=== PATIENT | female | born 1940 | race Caucasian/White ===

== ENCOUNTER 2016-09-20 19:42 | Inpatient (IN) | payer OTHER ==
--- NOTE | 2016-09-20 20:01 | CPEKG ---
Heart Rate: 86 RR Interval: 698 P-R Interval: 146 QRSD Interval: 146 QT Interval: 428 QTC Interval: 512 P [place]: 55 QRS [place]: 173 T Wave [place]: -13 EKG Severity - ABNORMAL ECG - EKG Impression: ATRIAL-SENSED VENTRICULAR-PACED COMPLEXES EKG Impression: NONSPECIFIC INTRAVENTRICULAR CONDUCTION DELAY EKG Impression: MINIMAL ST DEPRESSION, INFERIOR LEADS Electronically Signed By: Malena Troy 20-Sep-2016 22:09:42
[2016-09-20] MEDS ORDERED: ASPIRIN 81 MG CHEWABLE TAB PO ONE (20:05)
[2016-09-20] MEDS ORDERED: NITROGLYCERIN 0.4 MG BTL SL PRN (20:05)
--- NOTE | 2016-09-20 20:06 | EDPHY ---
HPI/HX/ROS/PE/MDM Narrative: CHIEF COMPLAINT: Chest pain, shortness of breath. HISTORY OF PRESENT ILLNESS: This patient is an anticoagulated 76 year old female with significant cardiac history arriving with her family complaining of chest pain and shortness of breath onset two days ago. She arrived in [place] yesterday from [place], and began to experience these symptoms before she left. Her discomfort is localized more to the left side of her chest and today radiates to her left arm. She endorses associated nausea and dizziness. She states she feels she "just can't breathe", and endorses worsening discomfort with deep inspiration. She denies fainting. She was hypoxic on room air at arrival at 84%. Today, she rates her discomfort as 5 or 6/10. She denies fever or recent illness. No chills, vomiting , diarrhea, urinary complaints, headache. REVIEW OF SYSTEMS: Aside from elements discussed in the HPI, a comprehensive 10-point review of systems was reviewed and is negative. PAST MEDICAL HISTORY: CHF, [place], 2 stents, pacemaker, defibrillator. Plavix SOCIAL HISTORY: Family at bedside. Lives in [place]. VITAL SIGNS: Reviewed by me GENERAL: Quiet, uncomfortable appearing. Well-developed, well-nourished, in moderate respiratory distress. HEENT: Atraumatic. Eyes: No icterus, no injection. Mouth: dry lips, slightly dry mucous membranes. No erythema or lesions. Neck: supple with no adenopathy. LUNGS: Diminished breath sounds, faint crackles at bases. CARDIAC: Regular rate and rhythm, no rubs, murmurs or gallops. ABDOMEN: Soft, nontender, nondistended, bowel sounds normal. BACK: No CVA tenderness. EXTREMITIES: No trauma. No edema. Range of motion is normal throughout. NEURO: Alert and oriented, grossly nonfocal. SKIN: Diaphoretic. Warm, mild diaphoresis on back, no rash. PSYCHIATRIC: Normal mentation, no agitation. Portions of this note were transcribed by a medical billing instructor. I personally performed a history, physical exam, medical decision making, and confirmed accuracy of information the transcribed note. ED Course: 76 year old female with significant cardiac history presents with 2 day history of chest pain, shortness of breath, and nausea. Diaphoretic, diminished breath sounds, uncomfortable feeling on exam. Plan for nitroglycerin administration, chest x-ray, labs including CBC, BMP, BNP , D-dimer, Troponin. 12-LEAD EKG: Please see the full report in [facility]. My interpretation: AV paced complexes. Rate 86. ST depression in inferior leads. Chest x-ray shows mild pulmonary edema. BNP elevated, D-dimer elevated. Patient is staying with her family at 7,700ft elevation. Plan for CTA. Plan for admission. 21:[address] Walsh, hospitalist. She accepts admission for chest pain , shortness of breath, hypoxemia, CHF exacerbation. CT scan negative for pulmonary emboli. MDM: After history and physical examination, the differential for this patients chest pain and shortness of breath was considered, including but not limited to , myocardial ischemia, acute coronary syndrome, pulmonary embolus, COPD exacerbation, pulmonary edema, congestive heart failure, chest wall pain, pleural inflammation and pulmonary infectious causes. - Data Points Imaging Results: Imaging Impressions Chest X-Ray 09/20/16 20:05 Impression: Cardiomegaly, with mild pulmonary edema. Left subclavian pacemaker leads. Laboratory Results: Laboratory Results 09/20/16 20:00 09/20/16 20:00 09/20/16 09/20/16 09/20/16 20:00 20:00 20:00 WBC 8.49 10^3/uL 10^3/uL (3.80-9.50) RBC 4.14 10^6/uL L 10^6/uL (4.18-5.33) Hgb 14.6 g/dL g/dL (12.6-16.3) Hct 42.9 % % (38.0-47.0) MCV 103.6 fL H fL (81.5-99.8) MCH 35.3 pg H pg (27.9-34.1) MCHC 34.0 g/dL g/dL (32.4-36.7) RDW 12.6 % % (11.5-15.2) Plt Count 187 10^3/uL 10^3/uL (150-400) MPV 10.5 fL fL (8.7-11.7) Neut % (Auto) 54.6 % % (39.3-74.2) Lymph % (Auto) 33.0 % % (15.0-45.0) Wise % (Auto) 7.5 % % (4.5-13.0) Eos % (Auto) 3.9 % % (0.6-7.6) Baso % (Auto) 0.8 % % (0.3-1.7) Nucleat RBC Rel Count 0.0 % % (0.0-0.2) Absolute Neuts (auto) 4.63 10^3/uL 10^3/uL (1.70-6.50) Absolute Lymphs (auto) 2.80 10^3/uL 10^3/uL (1.00-3.00) Absolute Monos (auto) 0.64 10^3/uL 10^3/uL (0.30-0.80) Absolute Eos (auto) 0.33 10^3/uL 10^3/uL (0.03-0.40) Absolute Basos (auto) 0.07 10^3/uL 10^3/uL (0.02-0.10) Absolute Nucleated RBC 0.00 10^3/uL 10^3/uL (0-0.01) Immature Gran % 0.2 % % (0.0-1.1) Immature Gran # 0.02 10^3/uL 10^3/uL (0.00-0.10) PT 12.3 SEC SEC (12.0-15.0) INR 0.92 (0.83-1.16) APTT 26.1 SEC SEC (23.0-38.0) D-Dimer 0.99 ug/mLFEU H ug/mLFEU (0.00-0.50) Sodium 141 mEq/L mEq/L (134-144) Potassium 4.7 mEq/L mEq/L (3.5-5.2) Chloride 106 mEq/L mEq/L (97-110) Carbon Dioxide 23 mEq/l mEq/l (22-31) Anion Gap 12 mEq/L mEq/L (8-16) BUN 17 mg/dL mg/dL (7-23) Creatinine 0.8 mg/dL mg/dL (0.6-1.0) Estimated GFR > 60 Glucose 121 mg/dL H mg/dL (70-100) Calcium 9.8 mg/dL mg/dL (8.5-10.4) Troponin I 0.023 ng/mL ng/mL (0-0.034) NT-Pro-B Natriuret Pep 2300 pg/mL H pg/mL (0-450) Medications Given: Discontinued Medications Aspirin (Aspirin) 324 mg PO EDNOW ONE Stop: 09/20/16 20:06 Last Admin: 09/20/16 20:18 Dose: 324 mg Morphine Sulfate (Morphine) 2 mg IVP EDNOW ONE Stop: 09/20/16 20:06 Last Admin: 09/20/16 20:17 Dose: 2 mg Nitroglycerin (Nitrostat) 0.4 mg SL Q5M PRN PRN Reason: Chest Pain Stop: 09/20/16 20:16 Last Admin: 09/20/16 20:15 Dose: 0.4 mg General Time Seen by Provider: 09/20/16 19:54 Initial Vital Signs: Initial Vital Signs Heart Rate 87 09/20/16 19:46 Respiratory Rate 16 09/20/16 19:46 Blood Pressure 180/88 H 09/20/16 19:46 O2 Sat (%) 84 L 09/20/16 19:46 O2 (L/minute) 2 Allergies/Adverse Reactions: Sulfa (Sulfonamide Antibiotics) Allergy (Verified 09/20/16 19:49) Home Medications: Medication Instructions Recorded Carvedilol [Coreg (*)] 3.125 mg PO DAILY 09/20/16 Clopidogrel Bisulfate [Clopidogrel] 75 mg PO DAILY 09/20/16 DULoxetine [Cymbalta 60 MG (*)] 60 mg PO DAILY 09/20/16 Escitalopram Oxalate [Lexapro] 10 mg PO DAILY 09/20/16 Furosemide [Lasix 40 MG (*)] 40 mg PO DAILY 09/20/16 Gabapentin [Neurontin 300 MG (*)] 300 mg PO BID 09/20/16 Lisinopril [Zestril 2.5 mg (*)] 2.5 mg PO DAILY 09/20/16 Omeprazole 40 mg PO HS 09/20/16 Oxycodone HCl/Acetaminophen 1 each PO TID 09/20/16 [Oxycodone-Acetaminophen 10-325] Potassium Cl [Klor-Con] 10 meq PO BID 09/20/16 Simvastatin 40 mg PO HS 09/20/16 Departure - Departure Disposition: [facility] Clinical Impression: Shortness of breath, Hypoxemia Chest pain Qualifiers: Chest pain type: other chest pain Qualified Code(s): R07.89 - Other chest pain CHF exacerbation Qualifiers: Congestive heart failure type: unspecified congestive heart failure type Qualified Code(s): I50.9 - Heart failure, unspecified Condition: Fair Report Scribed for: Malena Troy Report Scribed by: Reina Lewis Date of Report: 09/20/16 Time of Report: 20:06
[2016-09-20 20:17] LABS: % IMMATURE GRANULYOCYTES 0.2 % (0.0-1.1); ABSOLUTE IMMATURE GRANULOCYTES 0.02 10^3/uL (0.00-0.10); ADD DIFF? NO; ADD MORPH? NO; ADD SCAN? NO; ATYPICAL LYMPHOCYTE FLAG 0 (0-99); FRAGMENT RBC FLAG 0 (0-99); HEMATOCRIT 42.9 % (38.0-47.0); HEMOGLOBIN 14.6 g/dL (12.6-16.3); LEFT SHIFT FLG 0 (0-99); LIPEMIA HEMOLYSIS FLAG 90 (0-99); MEAN CELL HEMOGLOBIN 35.3 pg (27.9-34.1); MEAN CELL VOLUME 103.6 fL (81.5-99.8); MEAN PLATELET VOLUME 10.5 fL (8.7-11.7); PLATELET CLUMPS FLAG 0 (0-99); PLATELET COUNT 187 10^3/uL (150-400); RED BLOOD CELL COUNT 4.14 10^6/uL (4.18-5.33); RED CELL DISTRIBUTION WIDTH 12.6 % (11.5-15.2)
[2016-09-20 20:38] LABS: ANION GAP 12 mEq/L (8-16); CALCIUM 9.8 mg/dL (8.5-10.4); CARBON DIOXIDE 23 mEq/l (22-31); CHLORIDE 106 mEq/L (97-110); CREATININE 0.8 mg/dL (0.6-1.0); GLOMERULAR FILTRATION RATE > 60; GLUCOSE 121 mg/dL (70-100); POTASSIUM 4.7 mEq/L (3.5-5.2); SODIUM 141 mEq/L (134-144)
[2016-09-20 20:50] LABS: TROPONIN I 0.023 ng/mL (0-0.034)
[2016-09-20 20:54] LABS: APTT 26.1 SEC (23.0-38.0); INR 0.92 (0.83-1.16); PROTIME(PATIENT) 12.3 SEC (12.0-15.0)
[2016-09-20] MEDS ORDERED: NITROGLYCERIN 0.4 MG BTL SL ONE (21:13)
[2016-09-20] MEDS ORDERED: IOPAMIDOL (ISOVUE 370) 100 ML BTL IV ONE (21:17)
[2016-09-20] MEDS ORDERED: ONDANSETRON 4 MG/2 ML VIAL IVP PRN (22:14)
[2016-09-20] MEDS ORDERED: ONDANSETRON DISINTEGRATING 4 MG TAB PO PRN (22:14)
[2016-09-20] MEDS ORDERED: ACETAMINOPHEN 325 MG TAB PO PRN (22:14)
[2016-09-20] MEDS ORDERED: FUROSEMIDE 40 MG in D5W 50 ML IV ONE (22:20)
--- NOTE | 2016-09-20 23:44 | PDGENHP ---
History and Physical - Chief Complaint Chest pain - History of Present Illness Ms. Radha Kelly is a 76 yo F w/ hx of CAD, ?CHF, and GERD presenting with 1 week of progressive chest discomfort and shortness of breath. Patient describes symptoms that began prior to her travel to [place] from [place] a few days ago. Over the last few days, the symptoms continued to worsen. She has been experiencing chest heaviness with some radiation to left arm as well as SOB. She denies diaphoresis or significant relation to exertion/relief with rest. She does note it worsens with deep breathing. The pain is mild/moderate and does not feel like previous heart attacks. She was chest pain free at the time of my evaluation. She denies fever, chills, abdominal pain, dysuria, and diarrhea. History Information - Allergies/Home Medication List Allergies/Adverse Reactions: Sulfa (Sulfonamide Antibiotics) Allergy (Verified 09/20/16 19:49) Home Medications: Carvedilol [Coreg (*)] 3.125 mg PO DAILY 09/20/16 [Last Taken 09/20/16] Clopidogrel Bisulfate [Clopidogrel] 75 mg PO DAILY 09/20/16 [Last Taken 09/20/16 ] DULoxetine [Cymbalta 60 MG (*)] 60 mg PO DAILY 09/20/16 [Last Taken 09/20/16] Escitalopram Oxalate [Lexapro] 10 mg PO DAILY 09/20/16 [Last Taken 09/20/16] Furosemide [Lasix 40 MG (*)] 40 mg PO DAILY 09/20/16 [Last Taken 09/20/16] Gabapentin [Neurontin 300 MG (*)] 300 mg PO BID 09/20/16 [Last Taken Unknown] Lisinopril [Zestril 2.5 mg (*)] 2.5 mg PO DAILY 09/20/16 [Last Taken 09/20/16] Omeprazole 40 mg PO HS 09/20/16 [Last Taken 09/19/16] Oxycodone HCl/Acetaminophen [Oxycodone-Acetaminophen 10-325] 1 each PO TID 09/20 [Last Taken Unknown] Potassium Cl [Klor-Con] 10 meq PO BID 09/20/16 [Last Taken Unknown] Simvastatin 40 mg PO HS 09/20/16 [Last Taken 09/19/16] I have personally reviewed and updated: family history, medical history - Past Medical History coronary artery disease - Surgical History Reports: spinal surgery - Family History Positive for: diabetes type II - Social History Smoking Status: Never smoked Alcohol Use: None Drug Use: None Review of Systems ROS: 10pt was reviewed & negative except for what was stated in HPI & below Physical Exam Temp Pulse Resp BP Pulse Ox 37.3 C 91 18 120/79 96 09/20/16 22:47 09/20/16 22:47 09/20/16 22:47 09/20/16 22:47 09/20/16 22:47 O2 (L/minute) 2 Constitutional: no apparent distress, not in pain Eyes: PERRL, EOMI Ears, Nose, Mouth, Throat: moist mucous membranes, no oral mucosal ulcers Cardiovascular: regular rate and rhythym, no murmur, rub, or gallop, edema (1+ b /l DAVID) Respiratory: no respiratory distress, inspiratory crackles (Mild, bibasilar) Gastrointestinal: normoactive bowel sounds, soft, non-tender abdomen Skin: warm, no rashes or abrasions Musculoskeletal: no muscle tenderness Neurologic: AAOx3, CN II-XII Intact Psychiatric: interacting appropriately, not anxious Lab Data & Imaging Review 09/20/16 20:00 09/20/16 20:00 WBC 8.49 10^3/uL (3.80-9.50) 09/20/16 20:00 RBC 4.14 10^6/uL (4.18-5.33) L 09/20/16 20:00 Hgb 14.6 g/dL (12.6-16.3) 09/20/16 20:00 Hct 42.9 % (38.0-47.0) 09/20/16 20:00 MCV 103.6 fL (81.5-99.8) H 09/20/16 20:00 MCH 35.3 pg (27.9-34.1) H 09/20/16 20:00 MCHC 34.0 g/dL (32.4-36.7) 09/20/16 20:00 RDW 12.6 % (11.5-15.2) 09/20/16 20:00 Plt Count 187 10^3/uL (150-400) 09/20/16 20:00 MPV 10.5 fL (8.7-11.7) 09/20/16 20:00 Neut % (Auto) 54.6 % (39.3-74.2) 09/20/16 20:00 Lymph % (Auto) 33.0 % (15.0-45.0) 09/20/16 20:00 [place] % (Auto) 7.5 % (4.5-13.0) 09/20/16 20:00 Eos % (Auto) 3.9 % (0.6-7.6) 09/20/16 20:00 Baso % (Auto) 0.8 % (0.3-1.7) 09/20/16 20:00 Nucleat RBC Rel Count 0.0 % (0.0-0.2) 09/20/16 20:00 Absolute Neuts (auto) 4.63 10^3/uL (1.70-6.50) 09/20/16 20:00 Absolute Lymphs (auto) 2.80 10^3/uL (1.00-3.00) 09/20/16 20:00 Absolute Monos (auto) 0.64 10^3/uL (0.30-0.80) 09/20/16 20:00 Absolute Eos (auto) 0.33 10^3/uL (0.03-0.40) 09/20/16 20:00 Absolute Basos (auto) 0.07 10^3/uL (0.02-0.10) 09/20/16 20:00 Absolute Nucleated RBC 0.00 10^3/uL (0-0.01) 09/20/16 20:00 Immature Gran % 0.2 % (0.0-1.1) 09/20/16 20:00 Immature Gran # 0.02 10^3/uL (0.00-0.10) 09/20/16 20:00 PT 12.3 SEC (12.0-15.0) 09/20/16 20:00 INR 0.92 (0.83-1.16) 09/20/16 20:00 APTT 26.1 SEC (23.0-38.0) 09/20/16 20:00 D-Dimer 0.99 ug/mLFEU (0.00-0.50) H 09/20/16 20:00 Sodium 141 mEq/L (134-144) 09/20/16 20:00 Potassium 4.7 mEq/L (3.5-5.2) 09/20/16 20:00 Chloride 106 mEq/L (97-110) 09/20/16 20:00 Carbon Dioxide 23 mEq/l (22-31) 09/20/16 20:00 Anion Gap 12 mEq/L (8-16) 09/20/16 20:00 BUN 17 mg/dL (7-23) 09/20/16 20:00 Creatinine 0.8 mg/dL (0.6-1.0) 09/20/16 20:00 Estimated GFR > 60 09/20/16 20:00 Glucose 121 mg/dL (70-100) H 09/20/16 20:00 Calcium 9.8 mg/dL (8.5-10.4) 09/20/16 20:00 Troponin I 0.023 ng/mL (0-0.034) 09/20/16 20:00 NT-Pro-B Natriuret Pep 2300 pg/mL (0-450) H 09/20/16 20:00 Imaging Review: CTPE negative for PE but showing presence of pulmonary edema. Visualized and Interpreted Chest x-ray results: Yes Chest X-Ray results: other (Mild pulmonary edema) EKG Interpretation: Positive for: other (V-paced) Assessment & Plan Assessment: Ms. Radha Kelly is a 76 yo F w/ CAD, ?CHF, and GERD presenting with several days of chest discomfort and shortness of breath consistent with CHF exacerbation. Plan: 1. CHF exacerbation - Mildly hypoxic with pulmonary edema and elevated BNP. Overall appears mild and patient is in no acute distress, warm, and well perfused. Patient is a poor historian and unclear if she has a history of heart failure. With her CAD history, ischemic cardiomyopathy is a distinct possibility. She reports a dry weight of 190 lbs; 203 on admission here. She takes furosemide 40 mg PO daily and does not pay much attention to fluid or sodium restriction. Noting symptoms have been present for at least 5 days, doubt ACS as trigger since troponin negative on arrival. CTPE without PE. - Pre-load: Lasix 40 mg IV x1; assess response and redose accordingly in AM - BB: Continue low dose Coreg - RESHMA: Continue low dose Lisinopril - Device: Dual chamber ICD in place - ARSLAN: Not on ricardo, unclear EF - Will order TTE for further clarification of diagnosis - Primary deburrer strip Dr. Tom Cole, [employer] in [place] 2. Chest pain - Suspect related to above; troponin negative on admission. ECG V- paced so difficult to assess for ischemia. - Will recheck troponin in AM to assure not rising 3. CAD - Patient reports history of 2 prior MIs with last stenting in February of this year. On DAPT, BB, RESHMA, statin, and lasix, which I will continue. 4. GERD - Continue PPI 5. Chronic back pain - With history of spinal surgery. Continue gabapentin and oxycodone PRN.
[2016-09-21] MEDS ORDERED: oxyCODONE IR 5 MG TAB PO PRN
[2016-09-21 03:50] LABS: % IMMATURE GRANULYOCYTES 0.3 % (0.0-1.1); ABSOLUTE IMMATURE GRANULOCYTES 0.02 10^3/uL (0.00-0.10); ADD DIFF? NO; ADD MORPH? NO; ADD SCAN? NO; ATYPICAL LYMPHOCYTE FLAG 10 (0-99); FRAGMENT RBC FLAG 0 (0-99); HEMATOCRIT 38.1 % (38.0-47.0); HEMOGLOBIN 12.7 g/dL (12.6-16.3); LEFT SHIFT FLG 0 (0-99); LIPEMIA HEMOLYSIS FLAG 80 (0-99); MEAN CELL HEMOGLOBIN 34.8 pg (27.9-34.1); MEAN CELL HEMOGLOBIN CONCENTR. 33.3 g/dL (32.4-36.7); MEAN CELL VOLUME 104.4 fL (81.5-99.8); MEAN PLATELET VOLUME 10.5 fL (8.7-11.7); PLATELET CLUMPS FLAG 10 (0-99); PLATELET COUNT 162 10^3/uL (150-400); RED BLOOD CELL COUNT 3.65 10^6/uL (4.18-5.33); RED CELL DISTRIBUTION WIDTH 12.7 % (11.5-15.2)
[2016-09-21 04:31] LABS: ANION GAP 10 mEq/L (8-16); CALCIUM 9.2 mg/dL (8.5-10.4); CARBON DIOXIDE 26 mEq/l (22-31); CHLORIDE 103 mEq/L (97-110); CREATININE 0.9 mg/dL (0.6-1.0); GLOMERULAR FILTRATION RATE > 60; GLUCOSE 95 mg/dL (70-100); MAGNESIUM 1.8 mg/dL (1.6-2.3); POTASSIUM 4.3 mEq/L (3.5-5.2); SODIUM 139 mEq/L (134-144)
[2016-09-21 04:42] LABS: TROPONIN I 0.038 ng/mL (0-0.034)
[2016-09-21] MEDS: LISINOPRIL 2.5 MG TAB PO SCH (09:26)
[2016-09-21] MEDS: CARVEDILOL 3.125 MG TAB PO SCH (09:26)
[2016-09-21] MEDS: DULoxetine 60 MG CAP PO SCH (09:26)
[2016-09-21] MEDS: CLOPIDOGREL BISULFATE 75 MG TAB PO SCH (09:26)
[2016-09-21] MEDS: GABAPENTIN 300 MG CAP PO SCH ×2 (09:26→21:16)
[2016-09-21] MEDS: ESCITALOPRAM OXALATE 10 MG TAB PO SCH (09:26)
[2016-09-21] MEDS: ENOXAPARIN 40 MG/0.4 ML SYR SC SCH (09:27)
--- NOTE | 2016-09-21 14:53 | ECHO ---
[id number] + + [address] : : [place] [address] : : [phone] + Adult Echocardiographic Report + --------+ :Name: JANETH ARAYA DStudy Date: 09/21/2016 08:44 AM : : Hospital Admission Number: [id number] Locat ion: 212: :: 1940 Gender: Female Height: 60 in : :Age: 76 yrs Race: WH Weight: 203 l b : :Reason For Study: Heart failure exacerbation : : BSA: 1.9 mete rs2 : :History: Pacer/VT : + --------+ MMode/2D Measurements \T\ Calculations IVSd: 0.55 cm LVIDd: 6.3 cm FS: 10.0 % MV Diam: 3.5 cm LVPWd: 0.61 cm LVIDs: 5.7 cm EDV(Teich): 203.6 ml ESV(Teich): 160.2 ml EF(Teich): 21.3 % Ao root diam: LVOT diam: 2.0 cmLVLd ap4: 9.2 cm SV(MOD-sp4): 3.2 cm LVOT area: EDV(MOD-sp4): 35.0 ml LA dimension: 3.0 cm2 144.0 ml 4.8 cm LVLs ap4: 8.9 cm ESV(MOD-sp4): 109.0 ml EF(MOD-sp4): 24.3 % Normal Measurement Values: + + :LVIDd (3.5-5.7cm) IVSd (0.6-1.1cm) LVPWd (0.6-1.1cm) Aortic Root (2.0-3.7cm)Left Atrium (1.5-4.0cm): :LV Vol(d) (76-115ml) LV Vol(s) (29-48ml) Ejec Fraction (50-65%)PV Filipe (0.6- 1.2m/s) TV Filipe (0.4-1.0m/s) : :MV E Filipe (0.8-1.0m/s)MV A Filipe (0.3-1.0m/s)LVOT Filipe (0.7-1.2m/s) Asc Ao Filipe ( 0.9-1.8m/s) : + + Doppler Measurements \T\ Calculations MV E max filipe: MV V2 max: Ao mean PG: LV V1 mean P.6 cm/sec 149.3 cm/sec 4.6 mmHg 1.1 mmHg MV A max filipe: MV max P.9 mmHg Ao V2 mean: LV V1 mean: 124.4 cm/sec MV V2 mean: 99.6 cm/sec 48.7 cm/sec MV E/A: 0.87 92.4 cm/sec Ao V2 VTI: 33.7 cm LV V1 VTI: 18.5 cm MV mean P.0 mmHgAVA(I,D): 1.7 cm2 MV V2 VTI: 38.1 cm MV area (1 diam): 9.8 cm2 MVA(VTI): 1.5 cm2 MV Flow area(1diam): 9.8 cm2 MR max filipe: MR(RF 1 diam): 3.2 %SV(MV 1 diam): RF(MV,Ao)(1 diam): 510.4 cm/sec 373.0 ml 0.26 MR max PG: SI(MV 1 diam): RF(MV,LVOT) 104.2 mmHg 198.6 ml/m2 (1diam): 0.85 SV(LVOT): 56.0 ml Left Ventricle The left ventricle is mild to moderately dilated. There is global thinning of the left ventricular toussaint. Left ventricular systolic function is severely reduced. EF estimate is 20%. LV all mid and apical segments are akinetic. Right Ventricle The right ventricle is normal in size and function. There is a pacemaker lead in the right ventricle. Atria The left atrium is severely dilated. Right atrial size is normal. The interatrial septum is intact with no evidence for an atrial septal defect. Mitral Valve There is moderate mitral annular calcification. There is no evidence of mitral valve prolapse. There is mild mitral stenosis. Mean gradient of 4 mmHg at 67 bpm. (mild ms). There is mild mitral regurgitation. Tricuspid Valve Normal tricuspid valve. There is trace tricuspid regurgitation. Aortic Valve The aortic valve is trileaflet. The aortic valve opens well. There is no aortic stenosis. There is no aortic insufficiency. Pulmonic Valve The pulmonic valve is not well visualized. There is no pulmonic valvular regurgitation. Great Vessels The aortic root is normal size. Pericardium/Pleural trivial pericardial effusion. There are no echocardiographic indications of cardiac tamponade. Conclusion A complete two-dimensional transthoracic echocardiogram was performed (2D, M-mode, Doppler and color flow Doppler). No previous for comparison (pt here on vacation). The left ventricle is mild to moderately dilated. EF estimate is 20%. There is global thinning of the left ventricular toussaint. Left ventricular systolic function is severely reduced. LV all mid and apical segments are akinetic. There is a pacemaker lead in the right ventricle. There is trace tricuspid regurgitation. The left atrium is severely dilated. There is mild mitral stenosis. There is mild mitral regurgitation. trivial pericardial effusion. Final Reading Physician: Nahun Mccarthy electronically signed on 09/21/2016 02:51 PM Ordering Physician: Fitz Whitt Performed By: Violette Spencer, TRAVIS
[2016-09-21] MEDS ORDERED: MIDAZOLAM 2 MG/2 ML VIAL ONE (17:01)
[2016-09-21] MEDS ORDERED: LIDOCAINE 1% 300 MG/30 ML SDV ONE (17:01)
[2016-09-21] MEDS ORDERED: fentaNYL 100 MCG/2 ML INJ ONE (17:01)
[2016-09-21] MEDS ORDERED: IOPAMIDOL (ISOVUE-370) 150 ML BTL IV ONE (17:02)
--- NOTE | 2016-09-21 17:24 | HOSPPROG ---
Hospitalist Progress Note Assessment/Plan: 76 yo F with PMH of CAD presenting with chest pain and sob in the setting of acute decompensated systolic heart failure # acute systolic heart failure: patient mildly volume overloaded on exam with lower extremity edema and pulmonary edema with at this point unclear prior hx of CHF. EF of 20% on echo today with global thinning and akinesis of the LV. Will continue diuresis with IV lasix, continue BB, [id number]. Has ICD in place. Will attempt to [place]. Cardiology consulted. # acute hypoxic respiratory failure: as low as 84% on RA today in the setting of acute pulmonary edema as above, will continue diuresis and monitor as above, no PE by CTA, no e/o pneumonia on personal review of cta # chest pain: in the setting of acute decompensated chf, trop indeterminant, will repeat trop, continue to monitor on tele, appreciate cardiology eval pending # CAD: continue DAPT, BB, Zay-i, statin, with chest pain and pending evaluation as above # GERD: continue ppi # chronic back pain: continue usual medications including gabapentin and oxycodone # IP status, will need > 48 hours stay for eval/mgmt of above Patient new to my care. Care plan reviewed with cardiology including plans for echo. Subjective: no significant overnight events, patient states she feels well that her chest pain is a bit better and that she is not sob as long as she has the o2 on Objective: Vital Signs Temp Pulse Resp BP Pulse Ox 36.9 C 70 18 115/51 L 94 09/21/16 16:00 09/21/16 16:00 09/21/16 16:00 09/21/16 16:00 09/21/16 16:00 Laboratory Results 09/21/16 03:35 09/21/16 03:35 09/20/16 09/21/16 09/22/16 05:59 05:59 05:59 Intake Total 255 Output Total 350 Balance -95 PT 12.3 SEC (12.0-15.0) 09/20/16 20:00 INR 0.92 (0.83-1.16) 09/20/16 20:00 awake alert nad anicteric op clear rrr systolic murmur bibasilar crackles, dec bs throughout soft nt nd trace ble edema warm dry well perfused oriented flat affect ICD10 Worksheet Patient Problems: Problems Problem Status Onset Chest pain Acute Shortness of breath Acute Hypoxemia Acute CHF exacerbation Acute
--- NOTE | 2016-09-21 17:29 | GCON ---
[f rep st] CONSULTATION CARDIOLOGY CONSULTATION DATE OF CONSULTATION: 09/21/2016 REFERRING PHYSICIAN: Rubia Walsh MD REASON FOR CONSULTATION: Chest pain. HISTORY OF PRESENT ILLNESS: The patient is a pleasant 76-year-old female with a known history of coronary artery disease with previous myocardial infarction with a history of PCI x2 to unknown vessel, with a history of ischemic cardiomyopathy with LVEF of approximately 25% status post primary prevention ICD implantation, who presented to [facility] with complaints of ongoing substernal chest tightness, shortness of breath, dyspnea on exertion , as well as extreme fatigue. The patient states these symptoms began earlier this week, approximately Saturday, before she left her home in [place], and states that since her arrival here in [place], they have become progressively worse prompting her admission to [facility] last evening around 2300. She did undergo a left heart catheterization and percutaneous coronary intervention in February of 2016. She is uncertain of which vessel underwent intervention. She also at the same time underwent upgrade of her primary pacemaker to a primary prevention ICD. She has been compliant with medical therapy including dual-antiplatelet therapy with aspirin 81 mg daily and Plavix 75 mg daily. She states that essentially since Saturday, she has had near chronic chest tightness which she described as a 9/10, nonradiating, and denies any exacerbating or alleviating factors. She leads a rather sedentary lifestyle. She denies any complaints of PND, orthopnea, or lower extremity edema. She denies complaints of palpitations, dizziness, lightheadedness, near syncope, or syncope. She denies any ICD firing. Currently at the time of my exam, she is resting comfortably but does complain of ongoing substernal chest tightness at the time of my exam. PAST MEDICAL HISTORY: 1. Coronary artery disease with previous PCI. 2. Ischemia cardiomyopathy. 3. Hypertension. 4. Primary Prevention ICD 5. GERD MEDICATIONS ON ADMISSION: Coreg 3.125 mg p.o. b.i.d., Plavix 75 mg daily, aspirin 81 mg daily, furosemide 40 mg daily, lisinopril 2.5 mg daily, omeprazole 40 mg at bedtime, oxycodone/acetaminophen 10/325 one tab p.o. t.i.d. , potassium chloride 10 mEq p.o. b.i.d., and simvastatin 40 mg daily. SOCIAL HISTORY: The patient is . She is visiting from [place]. She is visiting her son who lives in [place]. She is a lifelong nonsmoker. She does not drink alcohol. No history of illicit drug use. FAMILY HISTORY: Noncontributory. PHYSICAL EXAMINATION: VITAL SIGNS: Blood pressure 104/56, heart rate 72, respiratory rate of 21, oxygen saturation 97% on 2 L. GENERAL APPEARANCE: She is awake, alert, oriented, appropriate, in no apparent distress. She does have a flat affect that she and her state is her baseline. NECK: There is no evidence of JVP or carotid bruits. LUNGS: Clear to auscultation bilaterally. CARDIAC: S1, S2. Regular rate and rhythm. No murmurs, rubs, or gallops. PMI is not displaced. ABDOMEN: Soft, nontender, nondistended. There is no pulsatile mass or abdominal bruit. She does have no evidence of cyanosis clubbing or edema. Right common femoral artery pulse is palpable and 2 +. LABORATORY DATA: White blood cell count of 7.07, hemoglobin 12.7, hematocrit 38.1, platelets of 162. D-dimer 0.99. Sodium 139, potassium 4.3, chloride 103 , bicarb 26, BUN 16, creatinine 0.9, glucose 95, magnesium 1.8. Troponin rising from 0.023 to 0.038. N-terminal proBNP 2300. Echocardiogram done today demonstrates severe global hypokinesis with LVEF of 20 % with normal right ventricular size and function. Severe left atrial enlargement and normal right atrial size. There is moderate mitral annular calcification and evidence of mild mitral stenosis with mean gradient of 4 mmHg at 67 beats per minute. Trivial pericardial effusion. IMPRESSION: 1. Ongoing chest pain with mildly elevated troponin that has trended to positive since her admission. 2. Known history of coronary artery disease. 3. Ischemic cardiomyopathy. 4. Systolic congestive heart failure with left ventricular ejection fraction of 20%. 5. Primary prevention ICD in place. PLAN: 1. Recommend diagnostic left heart catheterization in the setting of ongoing substernal chest pressure and elevated troponin. 2. Risks and benefits have been reviewed with the patient. She understands risks and is agreeable to pursue. 3. She is currently on dual antiplatelet therapy. She has no contraindications to antiplatelet therapy, has no upcoming surgery scheduled. 4. Will plan for left heart catheterization this evening new. I have recommended that she cancel her flight for tomorrow at 11 a.m. back to [place]. Will plan to happily write a letter for her for the airlines for changing her flights in the setting of acute illness. 45 minutes spent coordinating patient care. /[id number]/MODL MTDD
--- NOTE | 2016-09-21 18:50 | CPIP ---
[f rep st] INVASIVE CARDIAC PROCEDURE DATE OF PROCEDURE: 09/21/2016 PROCEDURE: 1. Coronary angiography. 2. Left ventriculography. INDICATION: 1. Acute coronary syndrome. 2. Known coronary artery disease status post LAD and circumflex stenting. 3. Cardiomyopathy. ACCESS: The patient was prepped and draped in sterile fashion. 1% lidocaine was used to anesthetiz e the right inguinal region. A 6-Guatemalan introducer sheath was placed selectively in the right commo n femoral artery via modified Seldinger technique. CORONARY ANGIOGRAPHY: A 6-Guatemalan JL4 was advanced through the left main coronary artery and images obtained. The left main coronary artery bifurcated into an LAD and circumflex coronary arteries. T he left main coronary artery was relatively short. The left main coronary artery appeared normal. The left anterior descending coronary artery gave rise to 6 smaller diagonal branches. The left ant erior descending coronary artery was previously stented in the proximal mid segments. The previousl y placed stents were widely patent with no evidence of in-stent restenosis. The circumflex coronary artery was a large vessel. The circumflex coronary artery was dominant. Circumflex coronary arter y gave rise to 5 OM and posterior lateral branches. The circumflex coronary artery was previously s tented in the mid segment. The previously placed stent was widely patent with no evidence of in-mikey nt restenosis. A 6-Guatemalan JR4 was advanced through the right coronary artery and images obtained. The right coronary artery was nondominant. The right coronary artery appeared normal. LEFT VENTRICULOGRAPHY: A 6-Guatemalan pigtail catheter was advanced in the left ventricle and images ob tained. Left ventricle was mildly dilated in size with reduced systolic function. Estimated ejecti on fraction was 20%. There was global left ventricular hypokinesis. Left ventricular end-diastolic pressure was mildly elevated at 17 mmHg. /[id number]/MODL
[2016-09-21] MEDS: PANTOPRAZOLE SODIUM 40 MG TAB PO SCH (21:16)
[2016-09-21] MEDS: ATORVASTATIN CALCIUM 20 MG TAB PO SCH (21:16)
[2016-09-21] MEDS: FUROSEMIDE 20 MG/2 ML VIAL IVP SCH (22:35)
[2016-09-22 04:11] LABS: % IMMATURE GRANULYOCYTES 0.3 % (0.0-1.1); ABSOLUTE IMMATURE GRANULOCYTES 0.02 10^3/uL (0.00-0.10); ADD DIFF? NO; ADD MORPH? NO; ADD SCAN? NO; ATYPICAL LYMPHOCYTE FLAG 0 (0-99); FRAGMENT RBC FLAG 0 (0-99); HEMOGLOBIN 12.8 g/dL (12.6-16.3); LEFT SHIFT FLG 0 (0-99); LIPEMIA HEMOLYSIS FLAG 80 (0-99); MEAN CELL HEMOGLOBIN 35.7 pg (27.9-34.1); MEAN CELL HEMOGLOBIN CONCENTR. 33.7 g/dL (32.4-36.7); MEAN CELL VOLUME 105.8 fL (81.5-99.8); MEAN PLATELET VOLUME 11.1 fL (8.7-11.7); PLATELET CLUMPS FLAG 10 (0-99); PLATELET COUNT 174 10^3/uL (150-400); RED BLOOD CELL COUNT 3.59 10^6/uL (4.18-5.33); RED CELL DISTRIBUTION WIDTH 12.7 % (11.5-15.2)
[2016-09-22 04:12] LABS: ANION GAP 11 mEq/L (8-16); CALCIUM 8.9 mg/dL (8.5-10.4); CARBON DIOXIDE 26 mEq/l (22-31); CHLORIDE 103 mEq/L (97-110); CREATININE 0.8 mg/dL (0.6-1.0); GLOMERULAR FILTRATION RATE > 60; GLUCOSE 92 mg/dL (70-100); POTASSIUM 4.3 mEq/L (3.5-5.2); SODIUM 140 mEq/L (134-144)
[2016-09-22] MEDS: LISINOPRIL 2.5 MG TAB PO SCH (09:48)
[2016-09-22] MEDS: DULoxetine 60 MG CAP PO SCH (09:48)
[2016-09-22] MEDS: CLOPIDOGREL BISULFATE 75 MG TAB PO SCH (09:48)
[2016-09-22] MEDS: CARVEDILOL 3.125 MG TAB PO SCH (09:48)
[2016-09-22] MEDS: FUROSEMIDE 20 MG/2 ML VIAL IVP SCH (09:48)
[2016-09-22] MEDS: GABAPENTIN 300 MG CAP PO SCH ×2 (09:48→20:43)
[2016-09-22] MEDS: ESCITALOPRAM OXALATE 10 MG TAB PO SCH (09:48)
[2016-09-22] MEDS: ENOXAPARIN 40 MG/0.4 ML SYR SC SCH (09:49)
--- NOTE | 2016-09-22 12:16 | HOSPPROG ---
Hospitalist Progress Note Assessment/Plan: 76 yo F with PMH of CAD and ischemic cardiomyopathy presenting with chest pain and sob in the setting of acute decompensated systolic heart failure. # Acute on chronic systolic heart failure. Unclear baseline, there was some documentation of an EF of 25%. Currently it has been confirmed at 20% by LV g on angiogram. Patient has decompensated about 3 days prior to coming to [place] and has since worsened. No obvious triggers prior to her getting sick including dietary changes or arrhythmias. Certainly her congestive heart failure would be exacerbated by coming to altitude however she had symptoms prior to flying out here on Saturday. * Continue diuresis. Appreciate Cardiology consult * Will have her pacemaker interrogated to rule out arrhythmias * I talked to her financial dealers, Dr. Tom Cole in [place]. [phone]. Who states her previous EF was around 30-35%. She had an acute drop in her EF about a year ago they did an angiogram at that time which also showed no new lesions and tried up greater to a Bi V pacemaker. Apparently they were unable to do that due to the leads. # coronary artery disease: No obstruction on angiogram # acute hypoxic respiratory failure likely secondary to mild volume overload as well as altitude. Will continue oxygen supplementation. # chronic back pain with continuous narcotic dependency continue her home meds. # GERD: On PPI Subjective: Patient new to me, chart reviewed and discussed with her outpatient financial dealers Dr. Cole. She feels comfortable she continues to need oxygen. But denies any significant chest pain. Her weight is been stable. Objective: Vital Signs Temp Pulse Resp BP Pulse Ox 36.8 C 80 18 108/52 L 93 09/22/16 12:00 09/22/16 12:00 09/22/16 12:00 09/22/16 12:00 09/22/16 12:00 Laboratory Results 09/22/16 03:25 09/22/16 03:25 09/21/16 09/22/16 09/23/16 05:59 05:59 05:59 Intake Total 255 300 Output Total 350 920 Balance -95 -620 PT 12.3 SEC (12.0-15.0) 09/20/16 20:00 INR 0.92 (0.83-1.16) 09/20/16 20:00 - Physical Exam Constitutional: no apparent distress, appears nourished, not in pain, obese Eyes: PERRL, anicteric sclera, EOMI Ears, Nose, Mouth, Throat: moist mucous membranes, hearing normal, ears appear normal Cardiovascular: regular rate and rhythym Respiratory: no respiratory distress, reduced air movement, inspiratory crackles (Basis) Gastrointestinal: normoactive bowel sounds, soft, non-tender abdomen, no palpable masses Genitourinary: no bladder fullness Skin: warm, normal color Neurologic: AAOx3 Psychiatric: interacting appropriately ICD10 Worksheet Patient Problems: Problems Problem Status Onset Chest pain Acute Shortness of breath Acute Hypoxemia Acute CHF exacerbation Acute
[2016-09-22] MEDS ORDERED: FUROSEMIDE 20 MG/2 ML VIAL IVP SCH (13:17)
--- NOTE | 2016-09-22 13:28 | PDCARPN ---
Cardiology Progress Note Chief Complaint: acute on chronic sCHF Assessment/Plan: Assessment: 76-y/o F visiting from [place] (also spends sanchez in [place]), with PMH CAD/ previous PCIs, SCHF previous EF 30-35%, ICD implantation but could not be upgraded to Bi-V, htn, dyslipidemia, admitted with feeling "sick," characterized as weakness. Also had been noting chest tightness and dyspnea. #. acute systolic CHF exacerbation: evidenced by pulmonary edema, interstitial and plethoric pulmonary vasculature on chest CT EF now lower at 20% will increase IV Lasix to 40 BID continue Carvedilol and Lisinopril no arrhythmias seen on ICD interrogation #. CAD: patent stents on [facility] from this admission continue medical management #. htn: BPs are at goal #. hypoxia: likely 2/2 CHF continue supplemental O2 and IV diuresis Plan: - Increase Lasix dose 09/22/16 13:18 Subjective: Still feel weak. Symptoms started prior to leaving [place] on 09/19. No f/c, dysuria, cough. Has had a UTI last month with symptoms of dysuria. Compliant with medications. Reviewed/Discussed With: hospitalist Objective: Vital Signs (8 Hrs) Temp Pulse Resp BP Pulse Ox 09/22/16 12:00 98.3 F 80 18 108/52 L 93 09/22/16 08:00 98.7 F 74 18 122/57 H 95 Intake/Output (24 Hrs) 09/21/16 09/22/16 09/23/16 05:59 05:59 05:59 Intake Total 255 300 Output Total 350 920 Balance -95 -620 Intake: Oral (ml) 200 300 IV Infused (ml) 55 Furosemide 40 mg In D5w 55 50 ml @ 120 mls/hr IV ONCE ONE Rx#:[id number] Output: Urine (ml) 350 920 Toilet 350 920 Other: Weight 90 kg 90.4 kg Number of Voids Toilet 4 Result Diagrams: 09/22/16 03:25 09/22/16 03:25 Cardiac Labs: Cardiac Lab Results (72 Hrs) 09/21/16 09/21/16 20:25 03:35 Troponin I 0.018 0.038 H Laboratory Tests 09/20/16 20:00 NT-Pro-B Natriuret Pep 2300 H EKG: A-sensed, V-paced Telemetry: unremarkable Echocardiogram: EF 20, severe global HK, severe LAE, mod MAC and mild MS - Physical Exam Constitutional: no apparent distress Eyes: anicteric sclera Ears, Nose, Mouth, Throat: moist mucous membranes Cardiovascular: regular rate and rhythm, no murmurs Respiratory: no crackles, no wheezes, reduced air movement Gastrointestinal: normoactive bowel sounds, No tenderness Genitourinary: no suprapubic tenderness Skin: no rashes, no abrasions, other (trace ankle edema) Neurologic: AAOx3 Psychiatric: cooperative, interactive ICD10 Worksheet Patient Problems: Problems Problem Status Onset Chest pain Acute Shortness of breath Acute Hypoxemia Acute CHF exacerbation Acute
[2016-09-22] MEDS: FUROSEMIDE 40 MG/4 ML VIAL IVP SCH (15:29)
[2016-09-22] MEDS: ATORVASTATIN CALCIUM 20 MG TAB PO SCH (20:43)
[2016-09-22] MEDS: PANTOPRAZOLE SODIUM 40 MG TAB PO SCH (20:43)
[2016-09-23] MEDS: CARVEDILOL 3.125 MG TAB PO SCH (09:44)
[2016-09-23] MEDS: GABAPENTIN 300 MG CAP PO SCH ×2 (09:45→21:33)
[2016-09-23] MEDS: CLOPIDOGREL BISULFATE 75 MG TAB PO SCH (09:45)
[2016-09-23] MEDS: FUROSEMIDE 40 MG/4 ML VIAL IVP SCH ×2 (09:45→14:59)
[2016-09-23] MEDS: ESCITALOPRAM OXALATE 10 MG TAB PO SCH (09:45)
[2016-09-23] MEDS: ENOXAPARIN 40 MG/0.4 ML SYR SC SCH (09:45)
[2016-09-23] MEDS: LISINOPRIL 2.5 MG TAB PO SCH (09:45)
[2016-09-23] MEDS: DULoxetine 60 MG CAP PO SCH (09:57)
--- NOTE | 2016-09-23 11:40 | PDCARPN ---
Cardiology Progress Note Chief Complaint: No complaints today. Ongoing oxygen needs beyond normal for the patient Assessment/Plan: Assessment: Patient is a 76 y/o female with history of CAD s/p PCI to the pLAD and mLCX, HTN , HLP, and ischaemic CMP (EF 20% on recent echo) with ICD, but notable drop in systolic function in comparison to prior echo with outside cardiology ([place] team). Attempt to upgrade the ICD to biventricular were reportedly unsuccessful given lead location. Today, the patient reports that she is feeling well, but ongoing dyspnea is noted with limited activity. and son were present in the room with the patient today. Patient did not require outpatient oxygen in past, but has a requirement for this therapy now. Physical exam without signs of symptoms of heart failure (no JVD or lower extremity edema), but the weight might be up about 10 pounds off what the thought was "normal". Ongoing use of IV diuresis without renal impairment noted. Blood pressure was well controlled today. Recent angiography without new stenosis or restenosis of pLAD/mLCX vessels. Uncertain etiology, at this point, for the drop in ejection fraction. Plan: (1) Would maintain IV diuresis one more day, and consider switch and/or drop in dose tomorrow (2) Maintain therapy on Coreg and Zestril for both HTN and CMP history (3) Plavix to continue with history of PCI to LAD and LCX (4) Would continue statins for HLP history (and maintain annual assessment of cholesterol and LFTs (5) Ambulation in room is recommended today (6) Strict weights, ins, and outs (7) Will continue to follow this patient while in house Subjective: No cardiovascular complaints. Patient was resting comfortably in bed Reviewed/Discussed With: family, hospitalist Objective: Vital Signs (8 Hrs) Temp Pulse Resp BP Pulse Ox 09/23/16 10:34 82 L 09/23/16 09:44 91 127/73 H 09/23/16 08:34 77 131/64 H 09/23/16 08:00 36.8 C 66 18 84/60 L 97 09/23/16 04:00 36.6 C 104 H 20 137/69 H 92 Intake/Output (24 Hrs) 09/22/16 09/23/16 09/24/16 05:59 05:59 05:59 Intake Total 300 1650 Output Total 920 675 Balance -620 975 Intake: Oral (ml) 300 1650 Output: Urine (ml) 920 675 Toilet 920 675 Other: Weight 89.1 kg Output Comment Toilet Pt removed urine hat. Educated re: monitoring outpt, states understanding. Number of Voids Incontinence 1 Toilet 1 Result Diagrams: 09/22/16 03:25 09/22/16 03:25 Cardiac Labs: Cardiac Lab Results (72 Hrs) 09/21/16 09/21/16 20:25 03:35 Troponin I 0.018 0.038 H Telemetry: ventricular paced rhythm at 75-80 bpm Echocardiogram: 09-21-16 with LVEF of 20%. No significant valve pathology noted (mild MS was reported) - Physical Exam Constitutional: WDWN, healthy appearing, no apparent distress, obese Eyes: PERRL, EOMI Ears, Nose, Mouth, Throat: moist mucous membranes Cardiovascular: regular rate and rhythm, no murmurs, no rubs, no gallops Peripheral Pulses: 2+: dorsalis-pedis (R), dorsalis-pedis (L) Respiratory: clear to auscultate bilat, no crackles, no wheezes, reduced air movement (noted to the left mid/lower lung field. ) Gastrointestinal: normoactive bowel sounds Skin: no rashes, no edema Musculoskeletal: no muscular tenderness Neurologic: AAOx3, CN II-XII grossly intact Psychiatric: cooperative, interactive, following commands ICD10 Worksheet Patient Problems: Problems Problem Status Onset CHF exacerbation Acute Chest pain Acute Hypoxemia Acute Shortness of breath Acute
--- NOTE | 2016-09-23 15:49 | HOSPPROG ---
Hospitalist Progress Note Assessment/Plan: 76 yo F with PMH of CAD and ischemic cardiomyopathy presenting with chest pain and sob in the setting of acute decompensated systolic heart failure. # Acute on chronic systolic heart failure. Unclear baseline, there was some documentation of an EF of 25%. Currently it has been confirmed at 20% by LV g on angiogram. Patient has decompensated about 3 days prior to coming to [place] and has since worsened. No obvious triggers prior to her getting sick including dietary changes or arrhythmias. Certainly her congestive heart failure would be exacerbated by coming to altitude however she had symptoms prior to flying out here on Saturday. * Continue diuresis. Appreciate Cardiology consult, discussed with Dr. Stephen today * Pacemaker interrogation showed no a arrhythmias * I talked to her therapist asst, Dr. Tom Cole in [place]. [phone]. Who states her previous EF was around 30-35%. She had an acute drop in her EF about a year ago they did an angiogram at that time which also showed no new lesions and tried up greater to a Bi V pacemaker. Apparently they were unable to do that due to the leads. * Continue diuresis # coronary artery disease: No obstruction on angiogram # acute hypoxic respiratory failure likely secondary to mild volume overload as well as altitude. Will continue oxygen supplementation. # chronic back pain with continuous narcotic dependency continue her home meds. # GERD: On PPI Subjective: Feels about the same no specific complaints today. Still quite hypoxic on room air Objective: Vital Signs Temp Pulse Resp BP Pulse Ox 36.8 C 74 13 111/74 91 L 09/23/16 12:00 09/23/16 14:57 09/23/16 12:00 09/23/16 14:57 09/23/16 12:00 Laboratory Results 09/22/16 03:25 09/22/16 03:25 09/22/16 09/23/16 09/24/16 05:59 05:59 05:59 Intake Total 300 1650 Output Total 920 675 Balance -620 975 PT 12.3 SEC (12.0-15.0) 09/20/16 20:00 INR 0.92 (0.83-1.16) 09/20/16 20:00 - Physical Exam Constitutional: no apparent distress, obese Eyes: PERRL, anicteric sclera Ears, Nose, Mouth, Throat: moist mucous membranes Cardiovascular: regular rate and rhythym Respiratory: no respiratory distress, reduced air movement, inspiratory crackles (Base) Gastrointestinal: normoactive bowel sounds, soft, non-tender abdomen Genitourinary: no bladder fullness Skin: normal color Neurologic: AAOx3 Psychiatric: interacting appropriately, flat affect ICD10 Worksheet Patient Problems: Problems Problem Status Onset Chest pain Acute Shortness of breath Acute Hypoxemia Acute CHF exacerbation Acute
[2016-09-23] MEDS: PANTOPRAZOLE SODIUM 40 MG TAB PO SCH (21:33)
[2016-09-23] MEDS: ATORVASTATIN CALCIUM 20 MG TAB PO SCH (21:33)
[2016-09-24 09:27] LABS: ANION GAP 10 mEq/L (8-16); CALCIUM 9.5 mg/dL (8.5-10.4); CARBON DIOXIDE 31 mEq/l (22-31); CHLORIDE 95 mEq/L (97-110); CREATININE 0.8 mg/dL (0.6-1.0); GLOMERULAR FILTRATION RATE > 60; GLUCOSE 96 mg/dL (70-100); POTASSIUM 4.2 mEq/L (3.5-5.2); SODIUM 136 mEq/L (134-144)
[2016-09-24] MEDS: DULoxetine 60 MG CAP PO SCH (10:08)
[2016-09-24] MEDS: CARVEDILOL 3.125 MG TAB PO SCH (10:08)
[2016-09-24] MEDS: ESCITALOPRAM OXALATE 10 MG TAB PO SCH (10:08)
[2016-09-24] MEDS: CLOPIDOGREL BISULFATE 75 MG TAB PO SCH (10:08)
[2016-09-24] MEDS: GABAPENTIN 300 MG CAP PO SCH ×2 (10:08→20:48)
[2016-09-24] MEDS: FUROSEMIDE 40 MG/4 ML VIAL IVP SCH ×2 (10:08→16:23)
[2016-09-24] MEDS: ENOXAPARIN 40 MG/0.4 ML SYR SC SCH (10:12)
--- NOTE | 2016-09-24 11:38 | HOSPPROG ---
Hospitalist Progress Note Assessment/Plan: 76 yo F with PMH of CAD and ischemic cardiomyopathy presenting with chest pain and sob in the setting of acute decompensated systolic heart failure. she is feeling better today however continues to require oxygen supplementation. She is down to 1 L however drops to 82% on room air. # Acute on chronic systolic heart failure. Unclear baseline, there was some documentation of an EF of 25%. Currently it has been confirmed at 20% by LV g on angiogram. Patient has decompensated about 3 days prior to coming to [place] and has since worsened. No obvious triggers prior to her getting sick including dietary changes or arrhythmias. Certainly her congestive heart failure would be exacerbated by coming to altitude however she had symptoms prior to flying out here on Saturday. * Continue diuresis. Appreciate Cardiology consult * Pacemaker interrogation showed no a arrhythmias * I talked to her polysomnograph tech, Dr. Tom Cole in [place]. [phone]. Who states her previous EF was around 30-35%. She had an acute drop in her EF about a year ago they did an angiogram at that time which also showed no new lesions and tried up greater to a Bi V pacemaker. Apparently they were unable to do that due to the leads. * Continue diuresis, could potentially be discharged soon with oxygen, will discuss with Cardiology. # coronary artery disease: No obstruction on angiogram # acute hypoxic respiratory failure likely secondary to mild volume overload as well as altitude. Will continue oxygen supplementation. # chronic back pain with continuous narcotic dependency continue her home meds. # GERD: On PPI Subjective: Feels fine, feels better than she did on admission. still requiring oxygen. Objective: Vital Signs Temp Pulse Resp BP Pulse Ox 36.7 C 77 12 105/75 96 09/24/16 07:53 09/24/16 10:08 09/24/16 07:53 09/24/16 10:08 09/24/16 07:53 Laboratory Results 09/22/16 03:25 09/24/16 08:55 09/23/16 09/24/16 09/25/16 05:59 05:59 05:59 Intake Total 1650 398 Output Total 675 1450 Balance 975 -1052 PT 12.3 SEC (12.0-15.0) 09/20/16 20:00 INR 0.92 (0.83-1.16) 09/20/16 20:00 - Physical Exam Constitutional: no apparent distress, obese Ears, Nose, Mouth, Throat: moist mucous membranes, hearing normal Cardiovascular: regular rate and rhythym, no murmur, rub, or gallop Respiratory: no respiratory distress, clear to auscultation, reduced air movement Gastrointestinal: normoactive bowel sounds, No tenderness Skin: warm, normal color Musculoskeletal: full muscle strength Neurologic: AAOx3 Psychiatric: flat affect ICD10 Worksheet Patient Problems: Problems Problem Status Onset Chest pain Acute Shortness of breath Acute Hypoxemia Acute CHF exacerbation Acute
[2016-09-24] MEDS: LISINOPRIL 2.5 MG TAB PO SCH (12:44)
--- NOTE | 2016-09-24 15:49 | PDCARPN ---
Cardiology Progress Note Chief Complaint: No complaints today. Overall, patient reports that she is feeling somewhat better, but continues to have need for supplemental oxygen Assessment/Plan: Assessment: 09-24-16 Patient doing well today. No cardiovascular complaints of chest pains or pressure. Weights are down further today (and she was negative with ins/outs). stating that she was feeling better. Renal function continues to be within normal limits. Issues with communication cloud our ability to know how the patient is feeling - she is not exceedingly vocal with our interaction. Patient was not on supplemental oxygen at home, but is requiring therapy to maintain sats >92% while sitting in bed. 09-23-16 Patient is a 76 y/o female with history of CAD s/p PCI to the pLAD and mLCX, HTN , HLP, and ischaemic CMP (EF 20% on recent echo) with ICD, but notable drop in systolic function in comparison to prior echo with outside cardiology ([place] team). Attempt to upgrade the ICD to biventricular were reportedly unsuccessful given lead location. Today, the patient reports that she is feeling well, but ongoing dyspnea is noted with limited activity. and son were present in the room with the patient today. Patient did not require outpatient oxygen in past, but has a requirement for this therapy now. Physical exam without signs of symptoms of heart failure (no JVD or lower extremity edema), but the weight might be up about 10 pounds off what the thought was "normal". Ongoing use of IV diuresis without renal impairment noted. Blood pressure was well controlled today. Recent angiography without new stenosis or restenosis of pLAD/mLCX vessels. Uncertain etiology, at this point, for the drop in ejection fraction. Plan: (1) Drop dose of IV diuresis to once per day today and follow ins/outs/weights (2) Continue Coreg and Zestril given CMP history (3) I would like to have patient ambulate with assessment of sats (4) Plavix therapy should continue with CAD/PCI history (5) We will continue to follow this patient Subjective: No cardiovascular complaints this morning Reviewed/Discussed With: family, hospitalist, multidisciplinary team Objective: Vital Signs (8 Hrs) Temp Pulse Resp BP Pulse Ox 09/24/16 15:25 37.2 C 73 12 108/63 95 09/24/16 12:46 94 09/24/16 12:08 36.7 C 72 12 115/71 91 L 09/24/16 11:30 82 L 09/24/16 10:08 77 105/75 09/24/16 08:59 117/56 L 09/24/16 07:53 36.7 C 67 12 95/48 L 96 Intake/Output (24 Hrs) 09/23/16 09/24/16 09/25/16 05:59 05:59 05:59 Intake Total 1650 398 Output Total 675 1450 Balance 975 -1052 Intake: Oral (ml) 1650 350 IV Intake (ml) 48 Output: Urine (ml) 675 1450 Toilet 675 1450 Other: Weight 89.1 kg 88.9 kg Output Comment Toilet Pt removed urine hat. Educated re: monitoring outpt, states understanding. Number of Voids Incontinence 1 1 Toilet 1 Number of Stools Toilet 1 Result Diagrams: 09/22/16 03:25 09/24/16 08:55 Cardiac Labs: Cardiac Lab Results (72 Hrs) 09/21/16 20:25 Troponin I 0.018 Telemetry: ventricular pacing - Physical Exam Constitutional: WDWN, no apparent distress Eyes: PERRL, EOMI Ears, Nose, Mouth, Throat: moist mucous membranes Cardiovascular: regular rate and rhythm, no murmurs, no rubs, no gallops, pulses symmetric bilat Peripheral Pulses: 2+: dorsalis-pedis (R), dorsalis-pedis (L) Respiratory: clear to auscultate bilat, no crackles, no wheezes Gastrointestinal: normoactive bowel sounds Skin: no rashes, no edema Musculoskeletal: no muscular tenderness Neurologic: AAOx3, CN II-XII grossly intact Psychiatric: cooperative, interactive, following commands, flat affect ICD10 Worksheet Patient Problems: Problems Problem Status Onset CHF exacerbation Acute Chest pain Acute Hypoxemia Acute Shortness of breath Acute
[2016-09-24 16:15] LABS: BASE EXCESS 4.1 mEq/L (-2.5-2.5); BICARBONATE 29 mEq/L (22-26); MEASURED OXYGEN SATURATION 82 % (92-95); PCO2 45 mmHg (34-38); TCO2 30 mEq/L (23-27)
[2016-09-24 16:17] LABS: PO2 47 mmHg (65-75)
[2016-09-24] MEDS: APIXABAN 5 MG TAB PO SCH (20:48)
[2016-09-24] MEDS: ATORVASTATIN CALCIUM 20 MG TAB PO SCH (20:48)
[2016-09-24] MEDS: PANTOPRAZOLE SODIUM 40 MG TAB PO SCH (20:48)
[2016-09-25 05:01] LABS: ANION GAP 13 mEq/L (8-16); CALCIUM 9.4 mg/dL (8.5-10.4); CARBON DIOXIDE 26 mEq/l (22-31); CHLORIDE 99 mEq/L (97-110); CREATININE 0.8 mg/dL (0.6-1.0); GLOMERULAR FILTRATION RATE > 60; GLUCOSE 103 mg/dL (70-100); POTASSIUM 4.4 mEq/L (3.5-5.2); SODIUM 138 mEq/L (134-144)
[2016-09-25] MEDS: FUROSEMIDE 40 MG/4 ML VIAL IVP SCH (08:34)
[2016-09-25] MEDS: DULoxetine 60 MG CAP PO SCH (08:34)
[2016-09-25] MEDS: CARVEDILOL 3.125 MG TAB PO SCH (08:35)
[2016-09-25] MEDS: GABAPENTIN 300 MG CAP PO SCH ×2 (08:35→20:27)
[2016-09-25] MEDS: LISINOPRIL 2.5 MG TAB PO SCH (08:35)
[2016-09-25] MEDS: CLOPIDOGREL BISULFATE 75 MG TAB PO SCH (08:35)
[2016-09-25] MEDS: APIXABAN 5 MG TAB PO SCH ×2 (08:35→20:27)
[2016-09-25] MEDS: ESCITALOPRAM OXALATE 10 MG TAB PO SCH (08:35)
--- NOTE | 2016-09-25 13:06 | PDCARPN ---
Cardiology Progress Note Chief Complaint: No complaints were voiced today. Assessment/Plan: Assessment: 09-25-16 Patient is doing well. Family ( and son) with plans in motion to have the patient return to home - either [place] or [place]. There is support in both locations, but the [place] option might have better relationship with physicians AND family (not just family alone). From a cardiovascular standpoint , there has not been a clear explanation for the drop in systolic function. No new or progressive CAD was appreciated on angiography. Ongoing supplemental oxygen requirements are greater than her "baseline". Weights are near baseline (there was a slight increase in weight noted after halving the dose of IV lasix) . No complaints of chest pains or pressure. No PND or orthopnea. Small pulmonary emboli were appreciated, and are being treated with anticoagulation, but not likely to be the etiology for the drop in systolic function that was noted. The patient has had salvos of atrial fib/flutter while in house, and this too, could result in some drop in systolic function. 09-24-16 Patient doing well today. No cardiovascular complaints of chest pains or pressure. Weights are down further today (and she was negative with ins/outs). stating that she was feeling better. Renal function continues to be within normal limits. Issues with communication cloud our ability to know how the patient is feeling - she is not exceedingly vocal with our interaction. Patient was not on supplemental oxygen at home, but is requiring therapy to maintain sats >92% while sitting in bed. 09-23-16 Patient is a 76 y/o female with history of CAD s/p PCI to the pLAD and mLCX, HTN , HLP, and ischaemic CMP (EF 20% on recent echo) with ICD, but notable drop in systolic function in comparison to prior echo with outside cardiology ([place] team). Attempt to upgrade the ICD to biventricular were reportedly unsuccessful given lead location. Today, the patient reports that she is feeling well, but ongoing dyspnea is noted with limited activity. and son were present in the room with the patient today. Patient did not require outpatient oxygen in past, but has a requirement for this therapy now. Physical exam without signs of symptoms of heart failure (no JVD or lower extremity edema), but the weight might be up about 10 pounds off what the thought was "normal". Ongoing use of IV diuresis without renal impairment noted. Blood pressure was well controlled today. Recent angiography without new stenosis or restenosis of pLAD/mLCX vessels. Uncertain etiology, at this point, for the drop in ejection fraction. Plan: (1) Would convert the patient from IV to oral therapy for diuresis (2) Continue therapy on Coreg and Zestil for HTN management (3) Plavix therapy should continue with CAD/PCI history (4) Would recommend the patient have repeat echocardiography to determine if the suppression of EF was transient or continues to be noted (5) Eliquis was added after PEs were noted on CT scan - there is an elevated risk for bleeding on dual therapy, but both therapies are needed given the past history noted (6) Copies of testing (angiography, echocardiography, and CT scans) to be given to patient at time of discharge for cardiology in [place] Subjective: No cardiovascular complaints Reviewed/Discussed With: family, hospitalist, multidisciplinary team Objective: Vital Signs (8 Hrs) Temp Pulse Resp BP Pulse Ox 09/25/16 12:14 84 L 09/25/16 12:00 36.8 C 83 11 L 110/66 88 L 09/25/16 10:30 83 L 09/25/16 07:42 36.7 C 67 12 124/62 H 93 Intake/Output (24 Hrs) 09/24/16 09/25/16 09/26/16 05:59 05:59 05:59 Intake Total 398 160 Output Total 1450 250 575 Balance -1052 -90 -575 Intake: Oral (ml) 350 150 IV Intake (ml) 48 10 Output: Urine (ml) 1450 250 575 Incontinence 175 Toilet 1450 250 400 Other: Weight 88.9 kg 89.5 kg Number of Voids Incontinence 1 Toilet 1 Number of Stools Toilet 1 Result Diagrams: 09/22/16 03:25 09/25/16 04:27 EKG: atrial fibrillation, ventricular pacing, atrial flutter (intermittently noted) Telemetry: ventricular paced rhythm Echocardiogram: EF 20% without signficant valve pathology noted. There was "moderate to severe " left atrial dilation noted. - Physical Exam Constitutional: healthy appearing, no apparent distress, obese Eyes: PERRL, EOMI Ears, Nose, Mouth, Throat: moist mucous membranes Cardiovascular: regular rate and rhythm, no murmurs, no rubs, no gallops Peripheral Pulses: 2+: dorsalis-pedis (R), dorsalis-pedis (L) Respiratory: clear to auscultate bilat, no crackles, no wheezes, reduced air movement Gastrointestinal: normoactive bowel sounds Skin: no rashes, no edema Musculoskeletal: no muscular tenderness Neurologic: AAOx3, CN II-XII grossly intact Psychiatric: cooperative, interactive, following commands, flat affect ICD10 Worksheet Patient Problems: Problems Problem Status Onset CHF exacerbation Acute Chest pain Acute Hypoxemia Acute Shortness of breath Acute
--- NOTE | 2016-09-25 13:26 | HOSPPROG ---
Hospitalist Progress Note Assessment/Plan: 76 yo F with PMH of CAD and ischemic cardiomyopathy presenting with chest pain and sob in the setting of acute decompensated systolic heart failure. she is feeling better today however continues to require oxygen supplementation. She is down to 1 L however drops to 82% on room air. After reviewing her CT angiogram done on admission it was found to have small volume pulmonary embolus follow-up ultrasound showed no evidence of DVTs she will be anticoagulated with Eliquis. # Acute on chronic systolic heart failure. Currently it has been confirmed at 20% by LV g on angiogram. Patient has decompensated about 3 days prior to coming to [place] and has since worsened. No obvious triggers prior to her getting sick including dietary changes or arrhythmias. Certainly her congestive heart failure would be exacerbated by coming to altitude however she had symptoms prior to flying out here on Saturday. * Continue diuresis. Appreciate Cardiology consult, will transition to oral diuretics prior to discharge. * Pacemaker interrogation showed no a arrhythmias * I talked to her dance professor, Dr. Tom Cole in [place]. [phone]. Who states her previous EF was around 30-35%. She had an acute drop in her EF about a year ago they did an angiogram at that time which also showed no new lesions and tried up greater to a Bi V pacemaker. Apparently they were unable to do that due her ventricular lead * Anticipate discharge tomorrow, her son will set up a flight to [place] tomorrow afternoon. # small volume pulmonary embolus. Will anticoagulate with Eliquis. Prescription given to son today to fill prior to discharge tomorrow. # coronary artery disease: No obstruction on angiogram # acute hypoxic respiratory failure likely secondary to mild volume overload as well as altitude. Will continue oxygen supplementation. # chronic back pain with continuous narcotic dependency continue her home meds. # GERD: On PPI patient with acute on chronic systolic heart failure ongoing hypoxia and new pulmonary embolism complicated by acute hypoxic respiratory failure. She has multiple comorbidities including coronary artery disease and chronic back pain with continuous narcotic dependency. She needs to return to [place] in the plan at this point will be to discharge her tomorrow so she can catch her flight tomorrow afternoon. I did give the son her prescriptions she needs and will have respiratory therapy start working on her oxygen needs. Discharge summary has been dictated. Subjective: Feels about the same. Has not had chest pain since admission but continues to feel quite lethargic and has dyspnea on exertion. Objective: Vital Signs Temp Pulse Resp BP Pulse Ox 36.8 C 83 11 L 110/66 84 L 09/25/16 12:00 09/25/16 12:00 09/25/16 12:00 09/25/16 12:00 09/25/16 12:14 Laboratory Results 09/22/16 03:25 09/25/16 04:27 09/24/16 09/25/16 09/26/16 05:59 05:59 05:59 Intake Total 398 160 Output Total 1450 250 575 Balance -1052 -90 -575 PT 12.3 SEC (12.0-15.0) 09/20/16 20:00 INR 0.92 (0.83-1.16) 09/20/16 20:00 - Time Spent With Patient Time Spent with Patient: greater than 25 minutes (Discussing disease process and case management) Time Spent with Patient: Greater than 25 minutes spent on this patients care, greater than 50% of time spent counseling, educating, and coordinating care regarding the above mentioned plan. - Physical Exam Constitutional: no apparent distress Eyes: PERRL Ears, Nose, Mouth, Throat: moist mucous membranes Cardiovascular: regular rate and rhythym Respiratory: no respiratory distress Neurologic: AAOx3 Psychiatric: interacting appropriately, flat affect ICD10 Worksheet Patient Problems: Problems Problem Status Onset Chest pain Acute Shortness of breath Acute Hypoxemia Acute CHF exacerbation Acute
--- NOTE | 2016-09-25 18:33 | GDS ---
[f rep st] DISCHARGE SUMMARY DIAGNOSES: 1. Acute on chronic systolic failure, status post diuresis. 2. Pulmonary embolus, negative lower extremity deep venous thromboses. 3. Coronary artery disease. No obstruction noted on angiogram, patent stents. 4. Acute hypoxic respiratory failure, likely multifactorial secondary to volume overload, altitude and possible pulmonary embolus. The patient will need oxygen therapy after discharge. 5. Chronic back pain with continuous narcotic dependency. 6. Gastroesophageal reflux disease. 7. Dyslipidemia. 8. Hypertension. CONSULTATIONS: Cardiology. PROCEDURES DONE: 1. Chest and thoracic CT angiogram, small burden of pulmonary embolus involving segmental and subse gmental right upper lobe pulmonary arteries; segmental right middle lobe and peripheral segmental ri ght lower lobe vessels. 2. Coronary angiography and left ventriculography. Previously placed stents widely patent with no evidence of in-stent restenosis. No other significant obstructive coronary artery disease, estimate d ejection fraction 20%. 3. Echocardiogram. Ejection fraction estimated at 20%. Global thinning of left ventricular wall, severely reduced left ventricular systolic function. Pacemaker lead in the right ventricle. 4. Lower extremity Dopplers, negative for deep venous thrombosis. 5. Pacemaker interrogation with no obvious arrhythmias noted. HOSPITAL COURSE: Ms Kelly is a 76-year-old with a history significant for coronary artery disea se and chronic systolic failure with EF of 30% to 35% previously. She also has a history of sick si nus syndrome, status post pacemaker placement, and is followed by Dr. Cole in [place], [place]. She spends some of her year in [place] and some of her year in [place], and recently she had be en an [place], when she started feeling poorly 3 days prior to leaving for [place]. She noted inc reased lethargy, fatigue, shortness of breath and chest pressure. Upon arriving in [place], and st aying at her son's house at 7500 feet, her symptoms worsened significantly, and she came into the [facility] for further evaluation. She had a chest and thoracic angiogram done, initially revealed no P E, but upon further review, did note small burden of pulmonary embolus, with negative DVTs. She als o had an echocardiogram and angiogram done with results above. It was felt that her symptoms were l ikely multifactorial from altitude, pulmonary embolus and systolic failure with pulmonary edema and she was diuresed. Throughout her hospitalization, she continued to require oxygen supplementation f or hypoxia and remained symptomatic with dyspnea on exertion and fatigue. However, her chest pain c ompletely resolved. After several days of IV diuresis, her symptoms remained fairly stable. It was felt that she was likely stable here in [place], and should return down to [place] for further evaluation with her primary software quality assurance analyst. She is fairly euvolemic on exam and is having no chest p ain, but continues to require oxygen, dropping her sats to 82% to 84% on room air. CONDITION ON DISCHARGE: Fair. PHYSICAL EXAMINATION: VITAL SIGNS: Her oxygen saturations were 84% on room air, 93% on 1-2 L, hear t rate 83, blood pressure 110/66. GENERAL: She is alert. PSYCHIATRIC: Her affect is flat. HEART : Regular. LUNGS: Diminished breath sounds bilaterally, but no rales. EXTREMITIES: She has no s ignificant edema. DISCHARGE MEDICATIONS: Please see discharge medication form. She will resume her home medications, including Lasix at 40 mg daily, Eliquis 5 mg twice daily was added to her regimen to treat her pulm onary embolus. FOLLOWUP INSTRUCTION: She will be discharged with oxygen. This will be set up prior to discharge, as she will need oxygen on her plane flight, and she will return to [place], where she will make an appointment with her doctor, Dr. Cole. Copies of all her procedures were done for the patient. Total time spent with patient today is greater than 35 minutes in coordination of care. Anticipate her discharge tomorrow, so she can get her plane flight down to [place]. /[id number]/MODL
[2016-09-25] MEDS: ATORVASTATIN CALCIUM 20 MG TAB PO SCH (20:27)
[2016-09-25] MEDS: PANTOPRAZOLE SODIUM 40 MG TAB PO SCH (20:27)
[2016-09-26 07:16] VITALS: BP 108/52; RESP 12; TEMP 97.9; O2SAT 96
[2016-09-26] MEDS: FUROSEMIDE 40 MG/4 ML VIAL IVP SCH (08:55)
[2016-09-26] MEDS: CARVEDILOL 3.125 MG TAB PO SCH (08:55)
[2016-09-26] MEDS: CLOPIDOGREL BISULFATE 75 MG TAB PO SCH (08:55)
[2016-09-26] MEDS: APIXABAN 5 MG TAB PO SCH (08:56)
[2016-09-26] MEDS: DULoxetine 60 MG CAP PO SCH (08:56)
[2016-09-26] MEDS: LISINOPRIL 2.5 MG TAB PO SCH (08:56)
[2016-09-26] MEDS: GABAPENTIN 300 MG CAP PO SCH (08:56)
[2016-09-26] MEDS: ESCITALOPRAM OXALATE 10 MG TAB PO SCH (08:56)
[2016-09-26 08:57] VITALS: PULSE 67
--- NOTE | 2016-09-26 10:52 | PDIAF ---
- Diagnosis Diagnosis: heart failure Code Status: Full Code - Medication Management Discharge Medications: Medications to Continue on Transfer Carvedilol [Coreg (*)] 3.125 mg PO DAILY 09/20/16 [Last Taken 09/20/16] Clopidogrel Bisulfate [Clopidogrel] 75 mg PO DAILY 09/20/16 [Last Taken 09/20/16 ] DULoxetine [Cymbalta 60 MG (*)] 60 mg PO DAILY 09/20/16 [Last Taken 09/20/16] Escitalopram Oxalate [Lexapro 10 MG] 10 mg PO DAILY 09/20/16 [Last Taken ] Furosemide [Lasix 40 MG (*)] 40 mg PO DAILY 09/20/16 [Last Taken 09/20/16] Gabapentin [Neurontin 300 MG (*)] 300 mg PO BID 09/20/16 [Last Taken Unknown] Lisinopril [Zestril 2.5 mg (*)] 2.5 mg PO DAILY 09/20/16 [Last Taken 09/20/16] Omeprazole 40 mg PO HS 09/20/16 [Last Taken 09/19/16] Oxycodone HCl/Acetaminophen [Oxycodone-Acetaminophen 10-325] 1 each PO TID 09/20 [Last Taken Unknown] Potassium Cl [Klor-Con 10 meq (RX)] 10 meq PO BID 09/20/16 [Last Taken Unknown] Simvastatin 40 mg PO HS 09/20/16 [Last Taken 09/19/16] Apixaban [Eliquis] 5 mg PO BID #70 tab 09/25/16 [Last Taken Unknown] Discharge Medications: Refer to the Discharge Home Medication list for PRN reason. - Orders Services needed: Home Care, Registered Nurse, Physical Therapy Home Care Face to Face: I certify that this patient was under my care and that I had the required [id number] encounter meeting the encounter requirements on the discharge day. My findings support the fact that the patient is homebound as defined in CMS Chapter 7 Medicare Benefits Manual 30.1.1, The condition of the patient is such that there exists a normal inability to leave home and consequently, leaving home would require a considerable and taxing effort. Diet Recommendation: cardiac -low fat low salt Diet Texture: Regular Texture Diet - Follow Up Care Current Providers and Referrals: REGAN DEWITT [Other]
== END 2016-09-26 10:37 | disposition home or self-care (01) | DRG 286 ==
LOC: OBSVTOIN 21:11 → F2W 21:54
PROVIDERS: ADMIT Hospitalist; ATTEND Student in an Organized Health Care Education/Training Program
PROC: B2111ZZ Fluoroscopy of Multiple Coronary Arteries using Low Osmolar Contrast (ICD-10-PCS; principal; 2016-09-21)
PROC: B2151ZZ Fluoroscopy of Left Heart using Low Osmolar Contrast (ICD-10-PCS; principal; 2016-09-21)
DX: I11.0 Hypertensive heart disease with heart failure (principal); I50.23 Acute on chronic systolic (congestive) heart failure; I26.99 Other pulmonary embolism without acute cor pulmonale; J96.01 Acute respiratory failure with hypoxia; F11.20 Opioid dependence, uncomplicated; I25.10 Atherosclerotic heart disease of native coronary artery without angina pectoris; G89.29 Other chronic pain; K21.9 Gastro-esophageal reflux disease without esophagitis; E78.5 Hyperlipidemia, unspecified; Z95.0 Presence of cardiac pacemaker; Z79.01 Long term (current) use of anticoagulants; I25.2 Old myocardial infarction; Z95.5 Presence of coronary angioplasty implant and graft; I42.9 Cardiomyopathy, unspecified
CPT/HCPCS: 96374; 97165-GO; G8987-GO-CI; G8988-GO-CI; J1200; J1644; J1650; J1940; J2250; J3010; Q9967